=== PATIENT | female | born 1965 | race Caucasian/White ===

== ENCOUNTER 2020-04-15 15:54 | Emergency (ER) | payer SELFPAY ==
[~2020-04-15] VITALS: Ht 170.2 cm; Wt 60.0 kg
--- NOTE | 2020-04-15 17:00 | PHYS DOC ---
Past History Past Medical History: No Pertinent History (YUE LICONA APRN) Past Surgical History: No Surgical History (YUE LICONA APRN) Alcohol Use: None (YUE LICONA APRN) Adult General Chief Complaint Chief Complaint: VAGINAL PROBLEM HPI HPI Patient is a 54-year-old female who presents with vaginal discharge for the last 3 weeks. Patient reports a fishy odor, yellow-green discharge, itching, and burning with urination. Patient reports trying a [id number] vaginal suppository with no relief. Patient reports having trichomoniasis in the past and states that the symptoms she has today feel similar. Patient denies abdominal pain, nausea, vomiting. Patient denies any concerns for STDs and reports only having 1 sexual partner and has not been intimate with him for several months. (YUE LICONA APRN) Review of Systems Review of Systems Constitutional: Denies fever or chills [] Eyes: Denies change in visual acuity, redness, or eye pain [] HENT: Denies nasal congestion or sore throat [] Respiratory: Denies cough or shortness of breath [] Cardiovascular: No additional information not addressed in HPI [] GI: Denies abdominal pain, nausea, vomiting, bloody stools or diarrhea [] : Denies hematuria, burning with urination Musculoskeletal: Denies back pain or joint pain [] Integument: Denies rash or skin lesions [] Neurologic: Denies headache, focal weakness or sensory changes [] Endocrine: Denies polyuria or polydipsia [] Psychologic: 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 All other systems were reviewed and found to be within normal limits, except as documented in this note. (YUE LICONA APRN) Allergies Allergies Allergies Coded Allergies Type Severity Reaction Last Updated Verified Penicillins Allergy Unknown 04/15/20 Yes codeine Allergy Unknown 04/15/20 Yes erythromycin base Allergy Unknown 04/15/20 Yes (YUE LICONA APRN) Physical Exam Physical Exam Constitutional: Well developed, well nourished, no acute distress, non-toxic appearance. [] HENT: Normocephalic, atraumatic, bilateral external ears normal, oropharynx moist, no oral exudates, nose normal. [] Eyes: PERRLA, EOMI, conjunctiva normal, no discharge. [] Neck: Normal range of motion, no tenderness, supple, no stridor. [] Cardiovascular:Heart rate regular rhythm, no murmur [] Lungs & Thorax: Bilateral breath sounds clear to auscultation [] Abdomen: Bowel sounds normal, soft, no tenderness, no masses, no pulsatile masses. [] Skin: Warm, dry, no erythema, no rash. [] Back: No tenderness, no CVA tenderness. [] Extremities: No tenderness, no cyanosis, no clubbing, ROM intact, no edema. [] Neurologic: Alert and oriented X 3, normal motor function, normal sensory function, no focal deficits noted. [] Psychologic: Tearful, anxious (YUE LICONA APRN) Current Patient Data Vital Signs Vital Signs Date Time Temp Pulse Resp B/P (MAP) Pulse Ox O2 Delivery O2 Flow Rate FiO2 04/15/20 16:09 97.3 104 18 149/90 (109) 99 Room Air (YUE LICONA APRN) EKG EKG [] (YUE LICONA APRN) Radiology/Procedures Radiology/Procedures [] (YUE LICONA APRN) Heart Score Risk Factors: Risk Factors: DM, Current or recent (<one month) smoker, HTN, HLP, family history of CAD, obesity. Risk Scores: Risk Factors: DM, Current or recent (<one month) smoker, HTN, HLP, family history of CAD, obesity. (YUE LICONA APRN) Course & Med Decision Making Course & Med Decision Making Given symptoms and negative wet prep results most likely STI, will treat accordingly. Patient is in agreement with this plan. Pertinent Labs and Imaging studies reviewed. (See chart for details) (YUE LICONA APRN) Dragon Disclaimer Dragon Disclaimer This electronic medical record was generated, in whole or in part, using a voice recognition dictation system. (YUE LICONA APRN) Departure Departure: Impression: Primary Impression: Vaginal discharge Disposition: 01 DC HOME SELF CARE/HOMELESS Condition: GOOD Referrals: PCP,NO (PCP) Patient Instructions: Sexually Transmitted Disease, [id number] Additional Instructions: Abdominal pain female (STDs) You were seen in the Emergency Department for abdominal pain. Your lab studies, pelvic exam, and physical exam were non diagnostic for an acute cause of your symptoms. Abdominal pain is often idiopathic and the cause not often known. One cause of abdominal pain in a female is STD/STI. You do have gonorrhea and chlamydia tests that are still pending and have been sent to an outside facility for testing. If these tests are positive, you will be contacted using the information given to the triage personnel. You were not tested for all STD/STIs, but the organisms most likely to cause abdominal pain were investigated. For other STD/STI testing, please go to the health department or your primary care doctor for further testing. If you have worsening pain, new or worrisome symptoms, please return to the ED. Scripts Doxycycline Hyclate (DOXYCYCLINE HYCLATE) 100 Mg Tablet 1 TAB PO BID for infection, #20 TAB Prov: YUE LICONA APRN 04/15/20 Dragon Disclaimer This chart was dictated in whole or in part using Voice Recognition software in a busy, high-work load, and often noisy Emergency Department environment. It may contain unintended and wholly unrecognized errors or omissions. (LIZETH STEWART MD) Attending Signature Attending Signature I have participated in the care of this patient and I have reviewed and agree with all pertinent clinical information above including history, exam, and recommendations. (LIZETH STEWART MD) YUE LICONA APRN Apr 15, 2020 17:00 LIZETH STEWART MD Apr 16, 2020 22:35
[2020-04-15 17:23] LABS: BILIRUBIN,URINE NEG (NEG); CLARITY,URINE CLEAR; COLOR,URINE AMBER; GLUCOSE,URINE NEG (NEG)
[2020-04-15 17:24] LABS: BACTERIA,URINE FEW /HPF (0-FEW); NITRITE,URINE NEG (NEG); SQUAMOUS EPITHELIAL CELL,UR OCC /LPF
[2020-04-15 18:17] VITALS: BP 127/66
[2020-04-15] MEDS ORDERED: DOXY100T PO (18:30)
[2020-04-16 19:13] LABS: CHLAMYDIA PROBE Negative (Negative)
== END 2020-04-15 18:37 | disposition home or self-care (01) ==
LOC: ER 15:54
DX: N89.8 Other specified noninflammatory disorders of vagina (principal); R30.0 Dysuria; Z88.0 Allergy status to penicillin; Z88.5 Allergy status to narcotic agent; Z88.1 Allergy status to other antibiotic agents
CPT/HCPCS: 36415; 81001; 87086; 87491; 87591; 99283; Q0111